=== PATIENT | male | born 1950 | race Caucasian/White ===

== ENCOUNTER 2020-08-27 16:02 | Emergency (ER) | payer MEDICARE, SELFPAY ==
[2020-08-27] VITALS (13 sets, daily range): BP systolic 124–141; BP diastolic 74–98; PULSE 75–81; RESP 10–38; TEMP 36.2–36.8; O2SAT 93–100
--- NOTE | ~2020-08-27 | XR_ITS ---
EXAMINATION: XR forearm RT 2V, XR wrist RT min 3V DATE: 08/27/2020 16:48 INDICATION: Right wrist and forearm pain and swelling post injury TECHNIQUE: 1. AP an lateral views of the affected forearm were obtained. 2. Dorsal palmar, lateral and oblique views of the right wrist were obtained. COMPARISON: none FINDINGS: Dorsal subluxation of the right ulna at the distal radioulnar joint. Normal alignment at the right el bow and visualized hand. No fracture. Mild osteoarthritis at the proximal radioulnar joint. Prominent erosive changes at the distal radioulnar joint. Additional polyarticular osteoarthritis at the right hand, moderate severity at the first carpal metacarpal joint and mild at the wrist, triscaphe, first metacarpophalangeal and first interphalangeal joints. Lucencies which could represent degenerative s ubchondral cyst versus additional erosions at the dorsal base of the first metacarpal and at the prox imal aspect of the hamate. Prominent soft tissue swelling about the dorsal and ulnar aspects of the w rist and distal forearm and dorsal aspect of the right hand. IMPRESSION: 1. 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 2. Otherwise mild to moderate polyarticular osteoarthritis at the right hand and elbow, greatest at t he first carpometacarpal joint. Reviewed, dictated and finalized at location A. IMPRESSION: 1. Dorsal subluxation and prominent erosive arthritis at the right distal radio ulnar joint. 2. Otherwise mild to moderate polyarticular osteoarthritis at the right hand an d elbow, greatest at the first carpometacarpal joint.
--- NOTE | ~2020-08-27 | XR_ITS ---
EXAMINATION: XR wrist RT 2V DATE: 08/27/2020 18:28 INDICATION: Distal radioulnar joint subluxation status post reduction. TECHNIQUE: 2 views of right wrist on 3 radiographs were obtained. COMPARISON: Right wrist radiographs at 4:37 PM FINDINGS: There is variable alignment at distal radioulnar joint with joint widening, consistent with instability. No fracture. There is severe osteoarthritis of distal radioulnar joint. There is modera te osteoarthritis of radiolunate joint, mild osteoarthritis of triscaphe joint, and severe osteoarthr itis of first carpometacarpal joint. IMPRESSION: 1. Distal radioulnar joint instability. 2. Polyarticular osteoarthritis. Reviewed, dictated and finalized at location A.
--- NOTE | 2020-08-27 16:52 | ED.UPPEXIN ---
HPI - Extremity Injury (Upper) General Chief Complaint: Extremity Injury, Upper Stated Complaint: right wrist pain Time Seen by Provider: 08/27/20 16:32 Source: patient Mode of arrival: ambulatory Limitations: no limitations History of Present Illness HPI narrative: Patient is a 69 year old male who presents with right wrist pain. Patient reports initially twisting wrist while washing dishes approximately 2 weeks ago. Reports feeling a pop . Patient reports slight swelling and mild pain at the time. Patient reports twisting wrist in bed and reports increased pain and swelling over the past 2 days. He reports unable to move wrist at this time. Patient cradling wrist. Denies taking over the counter medications for pain. He denies all other complaints. MD complaint: injury to: right Related Data Allergies Allergy/AdvReac Type Severity Reaction Status Date / Time No Known Allergies Allergy Verified 08/27/20 16:33 Review of Systems Review of Systems: Narrative: CONSTITUTIONAL: Denies fever, chills, or sweats. EYES: Denies visual changes, redness, or discharge. ENT: Denies rhinorrhea, congestion, sore throat, or otalgia. CARDIOVASCULAR: Denies chest pain, palpitations, or edema. RESPIRATORY: Denies cough or dyspnea. GASTROINTESTINAL: Denies abdominal pain, nausea, vomiting, or diarrhea. GENITOURINARY: Denies dysuria or hematuria. SKIN: Denies rash or itching. MUSCULOSKELETAL: Right wrist pain NEUROLOGIC: Denies headache, numbness, dizziness, or weakness. PSYCHIATRIC: Denies anxiety or depression. [facility] Past Medical History Medical History (Updated 08/28/20 @ 00:00 by [facility] Daemon) No significant past medical history Surgical History Surgical History H/O hernia repair Social History Social History (Updated 08/27/20 @ 19:54 by [facility] oBb) Smoking status: Current every day smoker Tobacco type: cigarettes Alcohol intake: current Alcohol use details: occasional Substance use: never Living arrangements: with family Gender identity (if verbalized by the patient): Male Comments At the time of signature, I have reviewed and agree with nursing past medical, surgical, social, and family history unless otherwise noted. Please see nursing chart for further information. There is no relevant family history pertinent to the presenting complaint. Exam Narrative: Exam Narrative: GENERAL: Well-appearing, well-nourished, and in no acute distress. HEAD: Normocephalic, atraumatic. EYES: EOMI. No redness or drainage. Conjunctiva are normal. ENT: Mucous membranes pink and moist. CHEST: No respiratory distress. HEART: Regular rate and rhythm. EXTREMITIES: Edema and tenderness with palpation to right wrist, appears deformed, good capillary refill, distal sensation intact SKIN: Warm, dry, no rash. NEURO: No focal deficits. Alert and oriented x3. Gait steady. PSYCH: Normal affect. No signs of depression or anxiety. Course Vital Signs Vital signs: Vital Signs Temperature 36.2 C L 08/27/20 16:29 Pulse Rate 77 08/27/20 16:29 Respiratory Rate 17 08/27/20 16:29 Blood Pressure 130/74 08/27/20 16:29 Pulse Oximetry 99 08/27/20 16:29 Temperature 36.8 C 08/27/20 18:20 Pulse Rate 75 08/27/20 19:46 Respiratory Rate 13 08/27/20 19:46 Blood Pressure 141/87 H 08/27/20 19:46 Pulse Oximetry 99 08/27/20 19:46 Reviewed. Patient has been instructed to follow-up with his PCP regarding his blood pressure. Procedures Orthopedic Splinting/Casting Injury #1: Side: right Upper Extremity Injury Location: wrist Upper Extremity Immobilizer: sugar tong splint Splint: customized in ED OCL: sugar tong Pre-Procedure Neuro Vascular Exam: normal Post-Procedure Neuro Vascular Exam: normal Additional Comments: Patient splinted by wildlife biology technician. Procedural Sedation Procedural Sedation #1:
--- NOTE | 2020-08-27 18:10 | PC.NURSE ---
Addendum entered by Brooke Núñez RN 08/27/20 18:29: correction - Propofol 10MLS - 100MG given IVP per Dr John RIVAS at bedside Original Note: Propofol given 10MG IVP per EDP Dr John RIVAS at bedside
--- NOTE | 2020-08-27 18:13 | PC.NURSE ---
EDP Dr Lopez gave 5ML Propofol IVP in continued attempt for reduction
--- NOTE | 2020-08-27 18:20 | PC.NURSE ---
XRAY in room for repeat film
[2020-08-27] MEDS: PROPOFOL IV EMULSION 200 MG/20 ML VIAL (18:28)
== END 2020-08-27 20:10 | disposition home or self-care (01) ==
PROVIDERS: Emergency Provider Nurse Practitioner; PCP Family Medicine
DX: S63.011A Subluxation of distal radioulnar joint of right wrist, initial encounter (principal); X50.0XXA Overexertion from strenuous movement or load, initial encounter
CPT/HCPCS: 25605; 73090; 73100; 73110; 99285; A4565; J2704

== ENCOUNTER 2021-03-05 10:15 | Outpatient (CLI) | payer MEDICARE, SELFPAY ==
--- NOTE | ~2021-03-05 | XR_ITS ---
EXAMINATION: XR wrist LT 2V INDICATION: Multiple joint pain TECHNIQUE: Two views of the left wrist are obtained. COMPARISON: None available FINDINGS: There is no fracture. Severe osteoarthritis is noted at the distal radioulnar joint. There is also severe osteoarthritis at the triscaphe and first carpometacarpal joints. The soft tissues are unremarkable. Moderate osteoarthritis is noted at the first metacarpophalangeal joint. IMPRESSION: 1. Polyarticular osteoarthritis without acute osseous abnormality. Reviewed, dictated and finalized at location B. COLOR TESTER
--- NOTE | ~2021-03-05 | XR_ITS ---
EXAMINATION: XR hand LT 2V INDICATION: Multiple joint pain TECHNIQUE: Two views of the left hand are obtained. COMPARISON: None available FINDINGS: There is no fracture. Severe osteoarthritis is noted at the distal radioulnar joint. There is also severe osteoarthritis at the triscaphe and first carpometacarpal joints. The soft tissues are unremarkable. Moderate osteoarthritis is noted at the first metacarpophalangeal joint. There is mild osteoarthritis in several interphalangeal joints. IMPRESSION: 1. Polyarticular osteoarthritis without acute osseous abnormality. Reviewed, dictated and finalized at location B. CHANGER
== END 2021-03-05 10:16 | disposition home or self-care (01) ==
LOC: ANHIMG 10:18
PROVIDERS: PCP Family Medicine; Visit Provider Internal Medicine Rheumatology
DX: M19.032 Primary osteoarthritis, left wrist (principal); M19.042 Primary osteoarthritis, left hand
CPT/HCPCS: 73100; 73120

== ENCOUNTER 2021-03-28 09:23 | Outpatient (CLI) | payer MEDICARE, SELFPAY ==
--- NOTE | ~2021-03-28 | XR_ITS ---
EXAMINATION: XR chest 2V 03/28/2021 09:46 INDICATION: History of TB skin test PROCEDURE: 2 view chest COMPARISON: No prior studies for comparison. FINDINGS: The lungs are clear. The cardiomediastinal silhouette is within normal limits. There are no pleural effusions. There is no pneumothorax suspected. IMPRESSION: 1: NO ACUTE CARDIOPULMONARY DISEASE. Reviewed, dictated and finalized at location A. RECLAIMER
== END 2021-03-28 09:24 | disposition home or self-care (01) ==
PROVIDERS: PCP Family Medicine; Visit Provider Internal Medicine Rheumatology
DX: R76.11 Nonspecific reaction to tuberculin skin test without active tuberculosis (principal)
CPT/HCPCS: 71046